=== PATIENT | male | born 1975 | race Caucasian/White ===

== ENCOUNTER 2017-05-14 15:22 | Emergency (ER) | payer OTHER ==
[~2017-05-14] VITALS: Ht 175.3 cm; Wt 72.6 kg
[~2017-05-14 15:22] MED LIST: LEVAQUIN LEVA-750 M1 PO; NAP500 PO; NORCO1 TA2 PO
[2017-05-14 18:21] VITALS: BP 143/53
== END 2017-05-14 18:21 | disposition home or self-care (01) ==
LOC: ED 15:22
DX: N20.0 Calculus of kidney (principal); Z87.442 Personal history of urinary calculi
CPT/HCPCS: J1885